=== PATIENT | male | born 1960 ===

== ENCOUNTER 2022-08-20 09:09 | Day surgery (SDC) | payer OTHER ==
[~2022-08-20] VITALS: Ht 170.2 cm; Wt 80.7 kg
[2022-08-20] MEDS ORDERED: MIDAZOLAM 5 MG/5 ML VIAL ONE (10:59)
[2022-08-20] MEDS ORDERED: fentaNYL citrate 0.05 MG/ML VIAL ONE (10:59)
[2022-08-20] MEDS ORDERED: LIDOCAINE 2% 100 MG/5 ML UJET TP ONE (11:00)
[2022-08-20] MEDS ORDERED: MIDAZOLAM 5 MG/5 ML VIAL IV ONE (14:40)
[2022-08-20] MEDS ORDERED: fentaNYL citrate 0.05 MG/ML VIAL IVP ONE (14:40)
== END 2022-08-20 14:00 | disposition home or self-care (01) ==
LOC: MMU 09:09 → MDS 09:09
PROVIDERS: ATTEND Internal Medicine Gastroenterology
DX: D50.9 Iron deficiency anemia, unspecified (principal); K63.5 Polyp of colon; K57.30 Diverticulosis of large intestine without perforation or abscess without bleeding; K30 Functional dyspepsia; Z80.0 Family history of malignant neoplasm of digestive organs; K64.9 Unspecified hemorrhoids; Z79.82 Long term (current) use of aspirin; Z79.899 Other long term (current) drug therapy; Z20.822 Contact with and (suspected) exposure to COVID-19
CPT/HCPCS: 36415; 43239; 45385; 86677; 87426; J2250; J3010